=== PATIENT | male | born 1990 | race Caucasian/White ===

== ENCOUNTER 2019-03-12 10:57 | Inpatient (IN) ==
[2019-03-12 12:49] LABS: Basophils # (auto) 0.01 K/uL (0-0.2); Basophils % (auto) 0.2 %; Eosinophils # (auto) 0.01 K/uL (0-0.5); Eosinophils % (auto) 0.2 %; Hematocrit (blood only) 49.9 % (42-52); Hemoglobin 18.3 g/dL (14.0-18.0); Immature Granulocytes # (auto) 0.01 K/uL (0.00-0.02); Immature Granulocytes % (auto) 0.2 %; Lymphocytes # (auto) 1.58 K/uL (1.2-3.4); Lymphocytes % (auto) 34.4 %; Mean Corpuscular Hemoglobin 33.8 pg (25-34); Mean Corpuscular Hgb Conc 36.7 g/dL (32-36); Mean Corpuscular Volume 92.1 fL (80-100); Mean Platelet Volume 9.5 fL (7.4-10.4); Monocytes # (auto) 0.36 K/uL (0.11-0.59); Monocytes % (auto) 7.8 %; Neutrophils # (auto) 2.62 K/uL (1.4-6.5); Neutrophils % (auto) 57.2 %; Platelet Count 251 K/uL (130-400); RDW Coefficient of Variation 12.2 % (11.5-14.5); RDW Standard Deviation 41.1 fL (36.4-46.3); Red Blood Count 5.42 M/uL (4.7-6.1); White Blood Count 4.59 K/uL (4.8-10.8)
[2019-03-12 12:50] LABS: Appearance Urine Cloudy (Clear); Bacteria Urine Automated Negative (Negative); Bilirubin Urine Negative (Negative); Blood Urine Negative (Negative); Color Urine Dark Yellow; Epithelial Cell Urine Auto >30 /lpf (0-5); Glucose Urine UA Negative (Negative); Ketones Urine Trace (Negative); Leukocyte Esterase Urine Trace (Negative); Nitrite Urine Negative (Negative); Protein Urine 1+ (Negative); RBC Urine Automated 0-4 /hpf (0-4); Specific Gravity Urine 1.019 (1.000-1.030); Urobilinogen Urine Negative (Negative)
[2019-03-12 13:04] LABS: Albumin Level 4.6 gm/dl (3.4-5.0); BUN Creatinine Ratio 4.4 (10-20); Calcium 8.7 mg/dl (8.5-10.1); Creatinine Clr Calc Pharmacy 142.4 ml/min; Est GFR (African American) 133.9; Est GFR (Non-African American) 115.5; Potassium 3.1 mmol/L (3.5-5.1)
[2019-03-12 13:13] LABS: Amphetamines+Metham, Urine Neg (Neg); Barbiturates, Urine Neg (Neg); Benzodiazepine, Urine Neg (Neg); Cocaine, Urine Neg (Neg); MDMA (Ecstacy), Urine Neg (Neg); Methadone, Urine Neg (Neg); Opiate, Urine Neg (Neg); Phencyclidine, Urine Neg (Neg)
[2019-03-12 13:14] LABS: Albumin Globulin Ratio 1.2 (0.9-2); Bilirubin,Total 0.8 mg/dl (0.2-1); Globulin 3.9 gm/dl (2.5-4.0); Thyroid Stimulating Hormone 0.954 uIu/ml (0.300-4.500); Total Protein 8.5 gm/dl (6.4-8.2)
[2019-03-12 13:24] LABS: Acetaminophen < 2 ug/ml (10-30)
[2019-03-12 13:25] LABS: Salicylate < 1.7 mg/dl (2.8-20)
--- NOTE | 2019-03-12 19:22 | Emergency Department Note ---
Entered by Shawanda Rodrigues acting as a scribe for MoisesCalvin History of Present Illness General Chief complaint: Mental Health Evaluation Stated complaint: 302 Time Seen by Provider: 03/12/19 12:02 Source: patient History of Present Illness Onset (ago): day(s) (today) Location: head Pain Consistency: + other (episode) Quality: + other (mental health) Associated symptoms: + denies other symptoms (SI, HI, difficulty sleeping, loss of interest in activities, feeling guilty, change in energy, difficulty concentrating, changes in eating habits) and + other (stress at work) The patient is a 28 year old male who presents to the Emergency Room for a mental health evaluation. Per the psych case therapist, the patient is here on a 302. She states that the patient texted his boss that he might blow his head off. She states that the patient then quit his job so the patients boss was concerned and called 911. She reports that police found him in his living room sitting with his 2 shotguns and rifle. The patient states that he said about it in passing at work once before, but really drunk so may have sent a text. He notes that he does not remember. He states that all he knows is that he was sitting on the couch when there was a knock at the door. He reports that authorities then bought him here. The patient notes that he does have access to guns at his home. The patient states that he has had a lot of stress at work. The patient denies SI, HI, difficulty sleeping, loss of interest in activities, feeling guilty, change in energy, difficulty concentrating, changes in eating habits, using drugs, and ever being treated for depression or anxiety. 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 and A total of 10 systems reviewed and were otherwise negative Physical Exam Vital Signs Vital Signs - 24 hr 03/12/19 12:41 03/12/19 14:39 03/12/19 16:39 Pulse Rate [Finger] 116 H 118 H 110 H Pulse Rhythm [Finger] Regular Pulse Strength [Finger] Normal Respiratory Rate 20 20 16 Respiratory Effort / Characteristics Non-Labored Spontaneous Respiratory Depth Normal Respiratory Pattern Regular Blood Pressure [Left Arm] 153/99 H 163/104 H 157/97 H Blood Pressure Mean [Left Arm] 117 123 117 Blood Pressure Position [Left Arm] Sitting Pulse Oximetry 97 98 98 Oxygen Delivery Method Room Air Room Air Room Air 03/12/19 19:48 03/12/19 20:23 03/12/19 21:06 Pulse Rate [Finger] 99 H 88 Pulse Rhythm [Finger] Regular Regular Pulse Strength [Finger] Normal Normal Respiratory Rate 20 20 Respiratory Effort / Characteristics Non-Labored Spontaneous Non-Labored Spontaneous Respiratory Depth Normal Normal Respiratory Pattern Blood Pressure [Left Arm] 159/99 H 160/99 H 156/97 H Blood Pressure Mean [Left Arm] 119 119 116 Blood Pressure Position [Left Arm] Pulse Oximetry 100 99 Oxygen Delivery Method Room Air Room Air GENERAL: He is oriented to person, place, and time. He appears well-developed and well-nourished. He does not appear distressed. HENT: Exam performed. - Head: Normocephalic and atraumatic. - Right Ear: External ear normal. No mastoid tenderness. - Left Ear: External ear normal. No mastoid tenderness. - Mouth/Throat: The oropharynx is clear and moist. No trismus in the jaw. No dental abscesses or uvula swelling. No oropharyngeal exudate or tonsillar abscesses. EYES: Conjunctivae and EOM are normal. Pupils are equal, round, and reactive to light. Right eye exhibits no discharge. Left eye exhibits no discharge. No scleral icterus. NECK: Normal range of motion. Neck supple. No JVD present. No spinous process tenderness present. No carotid bruit present. No rigidity. No tracheal deviation and normal range of motion present. No Brudzinski's sign and no Kernig's sign n oted. CV: Normal rate, regular rhythm, normal heart sounds and intact distal pulses. There is no peripheral edema. Palpable radial pulses bue. PULM/CHEST: Effort normal and breath sounds normal. No respiratory distress. No stridor. He has no wheezes. He has no rales. - Chest Wall: He exhibits no tenderness. ABD: The abdomen is soft. Bowel sounds are normal. He has no distension. No mass is present. There is no tenderness. There is no rebound, no guarding, no Garcia's sign and no tenderness at McBurney's point. Rovsig negative. MUSC/SKEL: Normal range of motion. There is no peripheral edema, tenderness or deformity. LYMPH: No cervical adenopathy. NEURO: He is alert and oriented to person, place, and time. He has normal strength. No cranial nerve deficit or sensory deficit. Coordination and gait normal. GCS eye subscore is 4. GCS verbal subscore is 5. GCS motor subscore is 6. Cerebellar tests wnl. SKIN: Skin is warm and dry. He is not diaphoretic. PSYCH: He has a normal mood and affect. Behavior is normal. Judgment and thought content normal. Course 1251: Past medical records reviewed. The patient was evaluated in room A6. A complete history and physical exam was performed. 1804: Vital signs stable. Patient is medically clear. The psych case therapist recommends that after evaluation that the patient come in. 2030: The patient was signed out to Dr. Hartman at change of shift pending placement. Administered Medications Lorazepam (Ativan) 1 - 3 mg PO UD PRN; Protocol PRN Reason: EtoH Withdrawal AWSS 6-10+ Stop: 04/11/19 22:50 Last Admin: 03/13/19 11:44 Dose: 1 mg Documented by: [id number] Admin: 03/13/19 09:46 Dose: 1 mg Documented by: [id number] Discontinued Medications Sodium Chloride (Nss 1000ml) 1,000 mls @ 999 mls/hr IV .Q1H1M ONE Stop: 03/12/19 20:42 Last Infusion: 03/12/19 21:07 Dose: 0 mls/hr Documented by: [id number] Admin: 03/12/19 20:37 Dose: 999 mls/hr Documented by: [id number] Lorazepam (Ativan) 1 mg SL NOW STA Stop: 03/12/19 23:10 Last Admin: 03/12/19 23:12 Dose: 1 mg Documented by: [id number] Medical Decision Making Medical Records Attestation: I reviewed the patient's medical records. Home Medications Current Medication List: was personally reviewed by me Laboratory Data Attestation: I reviewed the patient's lab results. Result diagrams: 03/12/19 12:31 03/12/19 12:30 Lab Results 03/12/19 03/12/19 03/12/19 Range/Units 12:20 12:20 12:30 WBC (4.8-10.8) K/uL RBC (4.7-6.1) M/uL Hgb (14.0-18.0) g/dL Hct (42-52) % MCV (80-100) fL MCH (25-34) pg MCHC (32-36) g/dL RDW Std Deviation (36.4-46.3) fL RDW Coeff of Ney (11.5-14.5) % Plt Count (130-400) K/uL MPV (7.4-10.4) fL Immature Gran % (Auto) % Neut % (Auto) % Lymph % (Auto) % [place] % (Auto) % Eos % (Auto) % Baso % (Auto) % Immature Gran # (Auto) (0.00-0.02) K/uL Neut # (Auto) (1.4-6.5) K/uL Lymph # (Auto) (1.2-3.4) K/uL [place] # (Auto) (0.11-0.59) K/uL Eos # (Auto) (0-0.5) K/uL Baso # (Auto) (0-0.2) K/uL Sodium 140 (136-145) mmol/L Potassium 3.1 L (3.5-5.1) mmol/L Chloride 103 (98-107) mmol/L Carbon Dioxide 28 (21-32) mmol/L Anion Gap 9.0 (3-11) BUN 4 L (7-18) mg/dl Creatinine 0.89 (0.6-1.4) mg/dl Est Cr Clr Drug Dosing 142.4 ml/min Est GFR ( Amer) 133.9 Est GFR (Non-Af Amer) 115.5 BUN/Creatinine Ratio 4.4 L (10-20) Glucose 90 (70-99) mg/dl Calcium 8.7 (8.5-10.1) mg/dl Total Bilirubin 0.8 (0.2-1) mg/dl AST 74 H (15-37) U/L ALT 83 H (12-78) U/L Alkaline Phosphatase 70 (45-117) U/L Total Protein 8.5 H (6.4-8.2) gm/dl Albumin 4.6 (3.4-5.0) gm/dl Globulin 3.9 (2.5-4.0) gm/dl Albumin/Globulin Ratio 1.2 (0.9-2) TSH 0.954 (0.300-4.500) uIu/ml Urine Color Dark Yellow Urine Appearance Cloudy A (Clear) Urine pH 6.0 (4.5-7.5) Ur Specific [place] 1.019 (1.000-1.030) Urine Protein 1+ H (Negative) Urine Glucose (UA) Negative (Negative) Urine Ketones Trace H (Negative) Urine Blood Negative (Negative) Urine Nitrite Negative (Negative) Urine Bilirubin Negative (Negative) Urine Urobilinogen Negative (Negative) Ur Leukocyte Esterase Trace H (Negative) Urine WBC (Auto) 1-5 (0-5) /hpf Urine RBC (Auto) 0-4 (0-4) /hpf U Hyaline Cast (Auto) 10-30 H (0-5) /lpf U Epithel Cells (Auto) >30 H (0-5) /lpf Urine Bacteria (Auto) Negative (Negative) Salicylates (2.8-20) mg/dl Urine Opiates Screen Neg (Neg) Ur Methadone, Qual Neg (Neg) Acetaminophen (10-30) ug/ml Urine Barbiturates Neg (Neg) Ur Phencyclidine (PCP) Neg (Neg) U Amphetamin/Meth Scrn Neg (Neg) MDMA (Ecstasy) Screen Neg (Neg) U Benzodiazepines Scrn Neg (Neg) Ur Cocaine Metabolite Neg (Neg) U Marijuana (THC) Screen Neg (Neg) Ethyl Alcohol mg/dL (0-3) mg/dl 03/12/19 03/12/19 03/12/19 Range/Units 12:31 12:31 12:31 WBC 4.59 L (4.8-10.8) K/uL RBC 5.42 (4.7-6.1) M/uL Hgb 18.3 H (14.0-18.0) g/dL Hct 49.9 (42-52) % MCV 92.1 (80-100) fL MCH 33.8 (25-34) pg MCHC 36.7 H (32-36) g/dL RDW Std Deviation 41.1 (36.4-46.3) fL RDW Coeff of Ney 12.2 (11.5-14.5) % Plt Count 251 (130-400) K/uL MPV 9.5 (7.4-10.4) fL Immature Gran % (Auto) 0.2 % Neut % (Auto) 57.2 % Lymph % (Auto) 34.4 % [place] % (Auto) 7.8 % Eos % (Auto) 0.2 % Baso % (Auto) 0.2 % Immature Gran # (Auto) 0.01 (0.00-0.02) K/uL Neut # (Auto) 2.62 (1.4-6.5) K/uL Lymph # (Auto) 1.58 (1.2-3.4) K/uL [place] # (Auto) 0.36 (0.11-0.59) K/uL Eos # (Auto) 0.01 (0-0.5) K/uL Baso # (Auto) 0.01 (0-0.2) K/uL Sodium (136-145) mmol/L Potassium (3.5-5.1) mmol/L Chloride (98-107) mmol/L Carbon Dioxide (21-32) mmol/L Anion Gap (3-11) BUN (7-18) mg/dl Creatinine (0.6-1.4) mg/dl Est Cr Clr Drug Dosing ml/min Est GFR ( Amer) Est GFR (Non-Af Amer) BUN/Creatinine Ratio (10-20) Glucose (70-99) mg/dl Calcium (8.5-10.1) mg/dl Total Bilirubin (0.2-1) mg/dl AST (15-37) U/L ALT (12-78) U/L Alkaline Phosphatase (45-117) U/L Total Protein (6.4-8.2) gm/dl Albumin (3.4-5.0) gm/dl Globulin (2.5-4.0) gm/dl Albumin/Globulin Ratio (0.9-2) TSH (0.300-4.500) uIu/ml Urine Color Urine Appearance (Clear) Urine pH (4.5-7.5) Ur Specific [place] (1.000-1.030) Urine Protein (Negative) Urine Glucose (UA) (Negative) Urine Ketones (Negative) Urine Blood (Negative) Urine Nitrite (Negative) Urine Bilirubin (Negative) Urine Urobilinogen (Negative) Ur Leukocyte Esterase (Negative) Urine WBC (Auto) (0-5) /hpf Urine RBC (Auto) (0-4) /hpf U Hyaline Cast (Auto) (0-5) /lpf U Epithel Cells (Auto) (0-5) /lpf Urine Bacteria (Auto) (Negative) Salicylates < 1.7 L (2.8-20) mg/dl Urine Opiates Screen (Neg) Ur Methadone, Qual (Neg) Acetaminophen < 2 L (10-30) ug/ml Urine Barbiturates (Neg) Ur Phencyclidine (PCP) (Neg) U Amphetamin/Meth Scrn (Neg) MDMA (Ecstasy) Screen (Neg) U Benzodiazepines Scrn (Neg) Ur Cocaine Metabolite (Neg) U Marijuana (THC) Screen (Neg) Ethyl Alcohol mg/dL 173.0 H (0-3) mg/dl ECG Data Attestation: I personally reviewed and interpreted this ECG as follows: Indication: tachycardia (arrhythmia) Rate (beats per minute): 109 Rhythm: sinus rhythm Findings: + other (OK, QRS, and QT-c intervals are within normal limits); no ST depression and no ST elevation Blood Pressure Blood Pressure Findings: Elevated blood pressure Blood Pressure Disposition: elevated BP felt to be situational MDM Narrative 1251: Past medical records reviewed. The patient was evaluated in room A6. A complete history and physical exam was performed. 1804: Vital signs stable. Patient is medically clear. The psych case therapist recommends that after evaluation that the patient come in. 2030: The patient was signed out to Dr. Hartman at change of shift pending placement. Impression & Plan Suicide ideation Discharge Plan Visit Data *Final* Discharge Date/Time: 03/12/19 23:30 Chief Complaint: Mental Health Evaluation Stated Complaint: 302 ED Provider: Cristopher Hartman Discharge Problem: Suicide ideation Patient Disposition: Admitted As Inpatient Discharge Instructions Interventions: ED Discharge Assessment Last Done: 03/12/19 23:30 The scribe's documentation has been prepared under my direction and personally reviewed by me in its entirety. I confirm that the note above accurately reflects all work, treatment, procedures, and medical decision making performed by me.
[2019-03-12] MEDS: SODIUM CHLORIDE 0.9% 1000ML 1,000 ML IV ONE ×2 (19:54→20:37)
--- NOTE | 2019-03-12 21:48 | Emergency Department Note ---
ED Visit Note Patient signed out to me by Dr. De Leon awaiting placement in [facility] for inpatient psychiatric care on a voluntary admission. Patient has been medically cleared. Patient's heart rate improved with some fluids here and was accepted to [facility] for further care. Still anxious. No other acute issues in the emergency department. .
[2019-03-12] MEDS ORDERED: LORazepam 1 MG TAB SL STA (23:09)
[2019-03-12] MEDS ORDERED: BISMUTH SUBSALICYLATE PER ML OMNICELL CHARGE PO PRN (23:55)
[2019-03-12] MEDS ORDERED: SODIUM CHLORIDE 0.65% NA SOLN 45 ML (OCEAN) PRN (23:55)
[2019-03-12] MEDS ORDERED: ACETAMINOPHEN 325 MG TAB PO PRN (23:55)
[2019-03-12] MEDS ORDERED: ALUMINUM/MAGNESIUM SUSP 30 ML UDC PO PRN (23:55)
[2019-03-12] MEDS ORDERED: MAGNESIUM HYDROXIDE SUSP 30 ML UDC PO PRN (23:55)
--- NOTE | 2019-03-13 08:32 | History & Physical ---
Date of Service March 13, 2019 Impression / Recommendations Impression 28-year-old single male who lives alone in [place], denies any psychiatric history, and presented with police after sending suicidal text messages to his boss. He was brought in on a 302 warrant, but agreed to voluntary admission once sober. He denies symptoms sufficient to meet criteria for major depressive disorder, but endorses recent mood symptoms due to dissatisfaction at work, which were intensified by binge drinking yesterday morning during a text exchange with his boss. He says he does not recall sending suicidal texts, and was surprised when police came to his door. He has multiple firearms at home which he keeps out in the open and says this is not unusual. Collateral information from his mother and/or girlfriend would be beneficial, as well as ongoing discussion about coping skills and stressors. For now inpatient treatment is medically necessary due to the severity of presenting symptoms and risk for suicide if discharged prematurely. (1) Adjustment disorder with depressed mood: 03/13 -get collateral information from mother or girlfriend as to recent mood symptoms, suicidal statements, and other concerns. Scheduled family meetin g if appropriate. -Every 15 minute checks for safety. Encourage the patient to attend and participate in groups and therapy, work on healthy coping skills and a discharge safety plan. -Patient owns multiple guns, which he uses recreationally, and denies any safety concerns about having them in the home. Provide education regarding safe storage of guns and recommendations that a plan be in place for someone to remove and secure his guns if and when there are safety concerns. He does not feel this is necessary currently. -Education provided regarding risks of ongoing alcohol use, including worsening mood and anxiety, health issues, disinhibition/increased impulsivity, and increased risk of acting on suicidal thoughts. Patient states that yesterday's binge drinking was out of character, and that he typically drinks 1-2 drinks 1-3 nights a week. Present on Admission?: Yes (2) Alcohol intoxication: 03/13 -patient with hypertension, tachycardia, tremor, and reflux. Continue AWSS protocol with as needed lorazepam. He has received 3 mg in 12 hours since admission. Present on Admission?: Yes Risk Factors Assessment Male: Yes : Yes Do You Have Access To A Gun?: Yes (multiple guns - 2 pistols and several rifles) Health Problems: No Mental Health Diagnoses: No Substance Use Disorders: No Previous Attempt: No Family History of Suicide: No Previous Psychiatric Hospitalization: No Hopelessness: No Smoker: No Protective Factors Assessment Adventist Beliefs: No : No Responsible for Young Children: No Employed: No (Quit job today at [employer]) Stable Relationships: Yes Supportive Family: Yes Good Rapport with Provider: No Psychiatric History Identifying Data SHIRA DELACRUZ is a 28-year-old M who currently lives alone in [place], denies any psychiatric history, and was admitted on 03/12/19 22:52 on a 201 voluntary commitment for suicidal ideation with threats to shoot himself. Chief Complaint "Summarizing, it was a build up of anxiety and stuff from work, that led to a snap". History of Present Illness Patient presented to the ER yesterday (03/12/19) with police on a 302 warrant after he missed work for several days, then sent his boss a text stating he might "blow his head off." His boss contacted police who found him sitting in his living room with 3 guns. He was intoxicated on presentation with a BAL of 173. He reported significant work stress, and said he did not recall making suicidal statements to his boss, but that he often has SI when drinking. He endorsed recent increase in alcohol intake as a way to deal with stress. He had been living in [place] until a year ago when he moved here to live with his mother, and had been working at [employer] but didn't like the job or get along with his boss. He reported drinking 2 nights a week, and was started in AWSS due to HTN and tremor in ER. Today on my assessment, he reports he doesn't like his boss, as his car and he hadn't been to work in a while, and his boss was not very understanding. His boss also made rude comments about his girlfriend, "he's very intense and it's difficult to be around him." He says he texted his boss yesterday morning telling him he wasn't coming in, and his boss "fired back with a bunch of stuff." He got upset and "started drinking, either vodka or whiskey," and they continued to communicate by text over the next couple of hours, but he doesn't recall the content of this conversation as he was intoxicated. He admits he might have sent suicidal statements, and says the next thing he remembers, the police were at his door. He admits that he had several guns out in the living room when police arrived, and states he typically leaves his guns out, one on the table, one leaning against the wall, and one on a shelf, and is not concerned about safety issues. He denies that he's had suicidal thoughts when sober, stating it's "irrational" and he doesn't think he would ever hurt himself, "I don't want to hurt myself." He denies depressive symptoms, describes mood as "really good" (other than yesterday, which was "a really bad day"), just started a new relationship that is "going really good," and denies problems with sleep, appetite, weight loss, concentration, and guilt. He denies anxiety, psychosis, and lobito. He states his job was "the only thing not going good in my life." He had been thinking about leaving his job, but "felt an obligation" to some of the people he worked with. He had actually set up an interview at another local business, which he missed yesterday. He has lots of hobbies and enjoys sewing, woodworking, working on motorcycles and cars, and volunteers at a [employer] in [place]. Describes relationship with mother as "distant, but we love each other." He reports embarrassment about the events that led to hosp italization, states he is willing to talk through his stressors, and thinks that it could help to be here. Past Psychiatric History Previous Psych History: Denies. Current Psychiatric Diagnosis: Denies Outpatient Services: Denies Previous Psych Admissions: Denies Do You Have Access To A Gun?: Yes (multiple guns - 2 pistols and several rifles) History of Previous Suicide Attempt: No Describe Attempts in the Past: Patient denies past attempts but admits to past SI when drinking Past Medication Trials: Denies Allergies Allergy/AdvReac Type Severity Reaction Status Date / Time No Known Allergies Allergy Unverified 03/12/19 14:40 Home Medications Home Medications Medication Instructions Recorded Confirmed Type No Known Home Medications 03/12/19 03/12/19 History Family History Family History of: None Alcohol History Hx of Alcohol Use Over the Past 12 Months: Yes (increased past 3 days) AUDIT Total Score: 6 Patient reports drinking 1-3 nights a week, typically 1-2 drinks. In the past has been a heavier drinker, "the college amount, when I went to college." Denies h/o legal problems, relationship issues d/t drinking. Reports h/o alcohol withdrawal on one occasion, with tremor. Smoking Use Have You Smoked or Used Tobacco Products in the Last 30 Days: Yes tobacco type: cigarettes Smoking Status: Current some day smoker Smoking packs per day: 0.05 Substance History Hx of Prescription Med Misuse Over the Past 12 Months: No Hx of Over the Counter Med Misuse Over the Past 12 Months: No Hx of Inhalent Misuse Over the Past 12 Months: No Hx of Organic Substance Use Over the Past 12 Months: No Hx of Illegal Substances/Street Drug Use Over Past 12 Months: No Problems as a Result of Past Substance Use: Other (suicidal thoughts when drinking) Personal History Living Arrangements: Home Living Arrangements Comments: lives alone in 1 bedroom apartment in [place]. Mother lives in [place] with her 2nd (patient's step father). Childhood: Grew up in [place], [place]. Parents age 12, and he stayed in [place] with father initially, but for a period of 5 years moved to [place] with mother. 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 Lived there until age 27, when returned to [facility] to be close to mother and get away from city life/higher cost of living. Has 2 step sisters and 3 stepsisters who live in [place]. Employment Status: Cosmetic Maker Employed ([employer]) Marital Status: Single Beliefs That Will Affect Care: None Patient History Medical History No known health problems Family History Other No significant family history Social History Preferred Language: Amharic Communication Ability: Effective Oral Surgery Physician Required: No Beliefs That Will Affect Care: None marital status: Single Current Living Situation: Alone current occupational status: employed Feels Safe at Home: Yes Smoking Status: Current some day smoker Tobacco Type: cigarettes ; Hx Alcohol Use: Yes Hx Substance Use: No Review of Systems Review of Systems: All systems reviewed & are unremarkable except as noted in HPI & below reflux, tremor, headache. Denies history of manic, psychotic, and anxiety symptoms. Physical Exam Psychiatric: Orientation: alert and cooperative Apperance: appropriately dressed, appropriately groomed and appeared stated age Eye Contact: + fair eye contact Motor Behavior: steady gait and station Mild tremor of bilateral upper extremities Speech: normal rate/rhythm/volume of speech Affect: + anxious affect and + blunted affect "Embarrassed." Thought Process: goal directed thought process Thought Content: reality based without delusions Suicidal Thoughts: denies suicidal thoughts Homicidal Thoughts: denies homicidal thoughts Hallucinations: no auditory hallucinations Cognition: recent memory grossly intact (Other than events of yesterday morning while intoxicated), attention grossly intact and language grossly intact Insight: + fair insight Judgement: + fair judgement (Although judgment was impaired yesterday on presentation) Vital Signs (Past 24 Hours): Last Vital Signs Temp 36.8 C 03/13/19 06:46 Pulse 97 H 03/13/19 06:47 Resp 18 03/13/19 06:46 BP 141/97 H 03/13/19 06:47 Pulse Ox 97 03/12/19 23:02 Exam Statement: A physical exam was performed in the ER prior to admission to the unit by Dr. Cristopher Hartman. I accept that physical as correct/medical clearance for the inpatient physical exam. Results & Data Laboratory Results Laboratory Results - last 24 hr 03/12/19 03/12/19 03/12/19 12:20 12:20 12:30 WBC RBC Hgb Hct MCV MCH MCHC RDW Std Deviation RDW Coeff of Ney Plt Count MPV Immature Gran % (Auto) Neut % (Auto) Lymph % (Auto) [place] % (Auto) Eos % (Auto) Baso % (Auto) Immature Gran # (Auto) Neut # (Auto) Lymph # (Auto) [place] # (Auto) Eos # (Auto) Baso # (Auto) Sodium 140 Potassium 3.1 L Chloride 103 Carbon Dioxide 28 Anion Gap 9.0 BUN 4 L Creatinine 0.89 Est Cr Clr Drug Dosing 142.4 Est GFR ( Amer) 133.9 Est GFR (Non-Af Amer) 115.5 BUN/Creatinine Ratio 4.4 L Glucose 90 Calcium 8.7 Total Bilirubin 0.8 AST 74 H ALT 83 H Alkaline Phosphatase 70 Total Protein 8.5 H Albumin 4.6 Globulin 3.9 Albumin/Globulin Ratio 1.2 TSH 0.954 Urine Color Dark Yellow Urine Appearance Cloudy A Urine pH 6.0 Ur Specific [place] 1.019 Urine Protein 1+ H Urine Glucose (UA) Negative Urine Ketones Trace H Urine Blood Negative Urine Nitrite Negative Urine Bilirubin Negative Urine Urobilinogen Negative Ur Leukocyte Esterase Trace H Urine WBC (Auto) 1-5 Urine RBC (Auto) 0-4 U Hyaline Cast (Auto) 10-30 H U Epithel Cells (Auto) >30 H Urine Bacteria (Auto) Negative Salicylates Urine Opiates Screen Neg Ur Methadone, Qual Neg Acetaminophen Urine Barbiturates Neg Ur Phencyclidine (PCP) Neg U Amphetamin/Meth Scrn Neg MDMA (Ecstasy) Screen Neg U Benzodiazepines Scrn Neg Ur Cocaine Metabolite Neg U Marijuana (THC) Screen Neg Ethyl Alcohol mg/dL 03/12/19 03/12/19 03/12/19 12:31 12:31 12:31 WBC 4.59 L RBC 5.42 Hgb 18.3 H Hct 49.9 MCV 92.1 MCH 33.8 MCHC 36.7 H RDW Std Deviation 41.1 RDW Coeff of Ney 12.2 Plt Count 251 MPV 9.5 Immature Gran % (Auto) 0.2 Neut % (Auto) 57.2 Lymph % (Auto) 34.4 [place] % (Auto) 7.8 Eos % (Auto) 0.2 Baso % (Auto) 0.2 Immature Gran # (Auto) 0.01 Neut # (Auto) 2.62 Lymph # (Auto) 1.58 [place] # (Auto) 0.36 Eos # (Auto) 0.01 Baso # (Auto) 0.01 Sodium Potassium Chloride Carbon Dioxide Anion Gap BUN Creatinine Est Cr Clr Drug Dosing Est GFR ( Amer) Est GFR (Non-Af Amer) BUN/Creatinine Ratio Glucose Calcium Total Bilirubin AST ALT Alkaline Phosphatase Total Protein Albumin Globulin Albumin/Globulin Ratio TSH Urine Color Urine Appearance Urine pH Ur Specific [place] Urine Protein Urine Glucose (UA) Urine Ketones Urine Blood Urine Nitrite Urine Bilirubin Urine Urobilinogen Ur Leukocyte Esterase Urine WBC (Auto) Urine RBC (Auto) U Hyaline Cast (Auto) U Epithel Cells (Auto) Urine Bacteria (Auto) Salicylates < 1.7 L Urine Opiates Screen Ur Methadone, Qual Acetaminophen < 2 L Urine Barbiturates Ur Phencyclidine (PCP) U Amphetamin/Meth Scrn MDMA (Ecstasy) Screen U Benzodiazepines Scrn Ur Cocaine Metabolite U Marijuana (THC) Screen Ethyl Alcohol mg/dL 173.0 H Current Inpatient Medications Current Inpatient Medications: Current Inpatient Medications Acetaminophen (Tylenol) 650 mg PO Q4H PRN PRN Reason: Headache or Minor Fever Stop: 04/11/19 23:54 Al Hydrox/Mg Hydrox/Simethicone (Maalox) 30 ml PO Q4H PRN PRN Reason: GI Upset Stop: 04/11/19 23:54 Bismuth Subsalicylate (Kaopectate) 15 ml PO PRN PRN PRN Reason: Loose Stool Stop: 04/11/19 23:54 Hydroxyzine HCl (Vistaril) 50 mg PO HSZ PRN PRN Reason: Insomnia Stop: 04/11/19 23:54 Hydroxyzine HCl (Vistaril) 25 mg PO Q4H PRN PRN Reason: Anxiety Stop: 04/11/19 23:54 Lorazepam (Ativan) 1 - 3 mg PO UD PRN; Protocol PRN Reason: EtoH Withdrawal AWSS 6-10+ Stop: 04/11/19 22:50 Magnesium Hydroxide (Milk Of Magnesia) 30 ml PO DAILY PRN PRN Reason: Constipation Stop: 04/11/19 23:54 Sodium Chloride ([place] Nasal) 1 - 2 sprays NA PRN PRN PRN Reason: Nasal Dryness/Congestion Stop: 04/11/19 23:54 CPT Code CPT Code Initial Hospital Care: 30425
[2019-03-13] MEDS: LORazepam 1 MG TAB PO PRN ×3 (09:46→14:37)
[2019-03-13] MEDS ORDERED: GABAPENTIN 1200MG ALCOHOL WITHDRAWAL LOAD PO STA (15:48)
[2019-03-13] MEDS ORDERED: GABAPENTIN 600 MG TAB PO ONE (16:00)
[2019-03-13] MEDS ORDERED: cloNIDine HCl 0.1 MG TAB PO ONE (16:15)
[2019-03-13] MEDS: GABAPENTIN 600 MG TAB PO SCH (21:15)
[2019-03-14] MEDS: GABAPENTIN 600 MG TAB PO SCH ×3 (04:03→20:16)
--- NOTE | 2019-03-14 07:07 | Psychiatric Progress Note ---
Date of Service March 14, 2019 Impression / Recommendations Impression 28-year-old single male who lives alone in [place], denies any psychiatric history, and presented with police after sending suicidal text messages to his boss. He was brought in on a 302 warrant, but agreed to voluntary admission once sober. He denies symptoms sufficient to meet criteria for major depressive disorder, but endorses recent mood symptoms due to dissatisfaction at work, complicated by alcohol abuse. Although he reported drinking up to 3 days a week, he had withdrawal with HTN and tachycardia and gabapentin taper had to be added to lorazepam prn AWSS. He says he does not recall sending suicidal texts, and was surprised when police came to his door, but was found with 3 different guns. He has multiple firearms at home which he keeps out in the open and says this is not unusual. Collateral information from his mother and/or girlfriend would be beneficial, as well as ongoing discussion about coping skills and stressors. Unfortunately he is declining a family meeting, and although he allowed staff to talk with his girlfriend, it is a new relationship and does not know very much about his history. For now inpatient treatment is medically necessary due to the severity of presenting symptoms and risk for suicide if discharged prematurely. (1) Adjustment disorder with depressed mood: 03/13 -get collateral information from mother or girlfriend as to recent mood symptoms, suicidal statements, and other concerns. Scheduled family meeting if appropriate. -Every 15 minute checks for safety. Encourage the patient to attend and part icipate in groups and therapy, work on healthy coping skills and a discharge safety plan. -Patient owns multiple guns, which he uses recreationally, and denies any safety concerns about having them in the home. Provide education regarding safe storage of guns and recommendations that a plan be in place for someone to remove and secure his guns if and when there are safety concerns. He does not f eel this is necessary currently. -Education provided regarding risks of ongoing alcohol use, including worsening mood and anxiety, health issues, disinhibition/increased impulsivity, and increased risk of acting on suicidal thoughts. Patient states that yesterday's binge drinking was out of character, and that he typically drinks 1-2 drinks 1-3 nights a week. 03/14 -mood continues to improve. Reports good support from girlfriend, but declining a formal family meeting. -Patient continues to decline recommendations to secure firearms. -Although he is interested in outpatient therapy, he is declining a referral due to lack of insurance and financial barriers. Encouraged him to apply for medical assistance, and will provide a list of resources in the community in case he changes his mind. (2) Alcohol withdrawal: 03/13 -patient with hypertension, tachycardia, tremor, and reflux. Continue AWSS protocol with as needed lorazepam. He has received 3 mg in 12 hours since admission. 03/14 -gabapentin taper started yesterday due to severity of withdrawal symptoms, tachycardia, and hypertension. Vital signs have stabilized, and he has not triggered AWSS in most 24 hours. -Reviewed patient's lab work with him, including his elevated LFTs, and that this is likely due to his alcohol intake. Reviewed the risks of ongoing alcohol use, including organ damage, effects on mood, risk of suicide, other dangerous behaviors, legal problems, etc. Reviewed recommendations for substance abuse treatment and abstinence. Brief intervention was offered and accepted Intervention was greater than 5 min in length. Brief interventions include: 1. Assess Readiness to Quit, 2. Advise: Help Patient to Reduce or Abstain from Alcohol, 3. Agree: Set Specific, Feasible Goals, 4. Assist: Anticipate barriers, Problem-Solving Solutions. Social work to 5. Arrange: Referrals to appropriate treatment. Summary of intervention: The patient is in contemplation stage with regards to transtheoretical model of change. The patient is advised to decrease alcohol consumption due to depressant effects and risk of interactions with prescription medications. The patient agreed to abstain from alcohol, and will be provided with recovery materials to continue to education self on how to cope with their condition without drinking. Present on Admission?: Yes Risk Factors Assessment Male: Yes : Yes Do You Have Access To A Gun?: Yes (multiple guns - 2 pistols and several rifles) Health Problems: No Mental Health Diagnoses: No Substance Use Disorders: No Previous Attempt: No Family History of Suicide: No Previous Psychiatric Hospitalization: No Hopelessness: No Smoker: No Protective Factors Assessment Baptism Beliefs: No : No Responsible for Young Children: No Employed: No (Quit job today at [employer]) Stable Relationships: Yes Supportive Family: Yes Good Rapport with Provider: No Interval History Identifying Information SHIRA DELACRUZ is a 28-year-old M who currently lives alone in [place], denies any psychiatric history, and was admitted on 03/12/19 22:52 on a 201 voluntary commitment for suicidal ideation with threats to shoot himself. Chief Complaint "Pretty good". Review of Systems Sleep Information Total Hours of Sleep: 8 Sleep Comments: awakened at 2340-AWSS of 0, toilet trip, awakened at 0400- medicated with second dose of neurontin and AWSS of 4, awakened for AM v/s with AWSS of 0 Meal Information Percent Meal Consumed - Breakfast: 100 Percent Meal Consumed - Lunch: 100 Percent Meal Consumed - Dinner: 100 Subjective Subjective Patient was seen & assessed and interval progress reviewed with nursing and social work. Staff report he continues to score on AWSS and received 4mg total of lorazepam yesterday. Due to increasingly elevated BP and continued AWSS scores, he was started on gabapentin taper and received a dose of clonidine. He declined a family meeting but allowed staff to talk to his girlfriend, who reported he drinks but was unsure how much. He has been quiet and spending spare time in his room, but did go to group. On my assessment, he reports mood is "pretty good, better" today, and has been going to groups which have been helpful. He has been talking about his stressors and says he enjoys "just talking." He reports good sleep and good appetite. He says he asked 3 different friends if they would come in for a meeting, and says they all told him "it's kind of my deal, and they don't want to get involved. It's kind of my job to sort out my problems. This was such a minor thing that turned into such a big issue." His girlfriend "surprise visited me yesterday" and brought him some items. He says he "doesn't really think I need that in my life anymore," when asked about alcohol. He discussed this with his girlfriend who agreed, and he plans "not to drink anymore, makes people ugly and evil, it's just not healthy." He does not think he needs help to stop. His girlfriend is going to come live with him, as she's been staying in a travel trailer on her friend's property while looking for a place. She doesn't drink and he thinks having her there will help him stay sober. He has also been making phone calls and thinks he has new job lined up. He is interested in counseling but says he can't afford it. He reports tremor which he says he has at baseline, and denies nausea, vomiting, sweating, and cravings to drink. He asked to review his admission labs, which was done. Reviewed LFTs and low K. Physical Exam Vital Signs (Past 24 Hours) Last Vital Signs Temp 36.6 C 03/14/19 06:36 Pulse 90 03/14/19 06:36 Resp 18 03/14/19 06:36 BP 130/89 03/14/19 06:36 Pulse Ox 97 03/12/19 23:02 Results & Data Current Inpatient Medications Current Inpatient Medications: Current Inpatient Medications Acetaminophen (Tylenol) 650 mg PO Q4H PRN PRN Reason: Headache or Minor Fever Stop: 04/11/19 23:54 Al Hydrox/Mg Hydrox/Simethicone (Maalox) 30 ml PO Q4H PRN PRN Reason: GI Upset Stop: 04/11/19 23:54 Bismuth Subsalicylate (Kaopectate) 15 ml PO PRN PRN PRN Reason: Loose Stool Stop: 04/11/19 23:54 Gabapentin (Neurontin) 600 mg PO Q12H CONNOR Stop: 03/16/19 04:01 Gabapentin (Neurontin) 600 mg PO Q24H CONNOR Stop: 03/17/19 06:01 Gabapentin (Neurontin) 600 mg PO Q8H CONNOR Stop: 03/15/19 04:01 Hydroxyzine HCl (Vistaril) 50 mg PO HSZ PRN PRN Reason: Insomnia Stop: 04/11/19 23:54 Hydroxyzine HCl (Vistaril) 25 mg PO Q4H PRN PRN Reason: Anxiety Stop: 04/11/19 23:54 Lorazepam (Ativan) 1 - 3 mg PO UD PRN; Protocol PRN Reason: EtoH Withdrawal AWSS 6-10+ Stop: 04/11/19 22:50 Last Admin: 03/13/19 14:37 Dose: 2 mg Documented by: Magnesium Hydroxide (Milk Of Magnesia) 30 ml PO DAILY PRN PRN Reason: Constipation Stop: 04/11/19 23:54 Sodium Chloride ([place] Nasal) 1 - 2 sprays NA PRN PRN PRN Reason: Nasal Dryness/Congestion Stop: 04/11/19 23:54 Mental Health & Subst Abuse Tx Therapist Name of Therapist: None Area Forester Name of Area Forester: None Post Discharge Appointments Primary Care Physician Name Of Family Doctor: None CPT Code CPT Code 41376
[2019-03-14] MEDS: LORazepam 1 MG TAB PO PRN ×3 (10:48→18:15)
[2019-03-14] MEDS ORDERED: cloNIDine HCl 0.1 MG TAB PO ONE (13:15)
[2019-03-15] MEDS: GABAPENTIN 600 MG TAB PO SCH ×2 (03:57→15:59)
--- NOTE | 2019-03-15 08:53 | Psychiatric Progress Note ---
Date of Service March 15, 2019 Impression / Recommendations Impression 28-year-old single male who lives alone in [place], denies any psychiatric history, and presented with police after sending suicidal text messages to his boss. He was brought in on a 302 warrant, but agreed to voluntary admission once sober. He denies symptoms sufficient to meet criteria for major depressive disorder, but endorses recent mood symptoms due to dissatisfaction at work, complicated by alcohol abuse. Although he reported drinking up to 3 days a week, he had withdrawal with HTN and tachycardia and gabapentin taper had to be added to lorazepam prn AWSS. He says he does not recall sending suicidal texts, and was surprised when police came to his door, but was found with 3 different guns. He has multiple firearms at home which he keeps out in the open and says this is not unusual. Pt continues to report that this is an "isolated situation", although his presenting factors suggest he may be minimizing aspects of his history. Pt continues to decline a family meeting, despite providing names of several supports (family, girlfriend). He today that he acquired a gun safe, and was able to participate in safety planning - with discussion of when it may be appropriate to give girlfriend the encarnacion to prevent future impulsive decisions/reactions. Pt discusses insight regarding his frequent "impulsive decisions", such as impulsively drinking, sending the text message, and recently purchasing a motorcycle. Given concern for patient minimizing presenting factors, admission of impulsive reactions, unwillingness to involve supports in discharge planning, and no established aftercare - a continued inpatient psychiatric admission is recommended. These factors place the patient at higher risk of harm to self on discharge. Referral for medical treatment at [facility] is being explored, and patient continues to decline outpatient D&A treatment. He states he has applied for medical assistance to assist with any future outpatient treatment options. (1) Adjustment disorder with depressed mood: 03/13 -get collateral information from mother or girlfriend as to recent mood symptoms, suicidal statements, and other concerns. Scheduled family meeting if appropriate. -Every 15 minute checks for safety. Encourage the patient to attend and participate in groups and therapy, work on healthy coping skills and a discharge safety plan. -Patient owns multiple guns, which he uses recreationally, and denies any safety concerns about having them in the home. Provide education regarding safe storage of guns and recommendations that a plan be in place for someone to remove and secure his guns if and when there are safety concerns. He does not feel this is necessary currently. -Education provided regarding risks of ongoing alcohol use, including worsening mood and anxiety, health issues, disinhibition/increased impulsivity, and increased risk of acting on suicidal thoughts. Patient states that yesterday's binge drinking was out of character, and that he typically drinks 1-2 drinks 1-3 nights a week. 03/14 -mood continues to improve. Reports good support from girlfriend, but declining a formal family meeting. -Patient continues to decline recommendations to secure firearms. -Although he is interested in outpatient therapy, he is declining a referral due to lack of insurance and financial barriers. Encouraged him to apply for medical assistance, and will provide a list of resources in the community in case he changes his mind. 03/15 - Pt reports ongoing improvement in mood, denies SI - concern for ongoing minimization of presenting symptoms - Given limited willingness to participate in recommended outpatient treatment, patient would benefit from ongoing therapeutic intervention and assistance in development of healthy and effective coping strategies - Referral is also in progress for [facility] to establish medical care, and medical assistance application has been encouraged to assist with any future treatment needs (2) Alcohol withdrawal: 03/13 -patient with hypertension, tachycardia, tremor, and reflux. Continue AWSS protocol with as needed lorazepam. He has received 3 mg in 12 hours since admission. 03/14 -gabapentin taper started yesterday due to severity of withdrawal symptoms, tachycardia, and hypertension. Vital signs have stabilized, and he has not triggered AWSS in most 24 hours. -Reviewed patient's lab work with him, including his elevated LFTs, and that this is likely due to his alcohol intake. Reviewed the risks of ongoing alcohol use, including organ damage, effects on mood, risk of suicide, other dangerous behaviors, legal problems, etc. Reviewed recommendations for substance abuse treatment and abstinence. Brief intervention was offered and accepted Intervention was greater than 5 min in length. Brief interventions include: 1. Assess Readiness to Quit, 2. Advise: Help Patient to Reduce or Abstain from Alcohol, 3. Agree: Set Specific, Feasible Goals, 4. Assist: Anticipate barriers, Problem-Solving Solutions. Social work to 5. Arrange: Referrals to appropriate treatment. Summary of intervention: The patient is in contemplation stage with regards to transtheoretical model of change. The patient is advised to decrease alcohol consumption due to depressant effects and risk of interactions with prescription medications. The patient agreed to abstain from alcohol, and will be provided with recovery materials to continue to education self on how to cope with their condition without drinking. 03/15 - Pt scored a 6 on two AWSS assessments last evening - this morning scoring a 2. Will continue AWSS protocol and ongoing gabapentin taper as above - Pt continues to decline recommended D&A outpatient treatment - Pt reports conversations with girlfriend in which they determined plan to keep the apartment "alcohol free" Risk Factors Assessment Male: Yes : Yes Do You Have Access To A Gun?: Yes (multiple guns - 2 pistols and several rifles) Health Problems: No Mental Health Diagnoses: No Substance Use Disorders: No Previous Attempt: No Family History of Suicide: No Previous Psychiatric Hospitalization: No Hopelessness: No Smoker: No Protective Factors Assessment Judaism Beliefs: No : No Responsible for Young Children: No Employed: No (Quit job today at [employer]) Stable Relationships: Yes Supportive Family: Yes Good Rapport with Provider: No Interval History Identifying Information SHIRA DELACRUZ is a 28-year-old M who currently lives alone in [place], denies any psychiatric history, and was admitted on 03/12/19 22:52 on a 201 voluntary commitment for suicidal ideation with threats to shoot himself. Chief Complaint "Feeling pretty good. Just had lunch, so a little sleepy." Review of Systems Notes Constitutional: denied Cardiovascular: denied Respiratory: denied Gastrointestinal: denied Neurological: denied Psychiatric: denies symptoms other than stated above Total of at least 10 systems reviewed, pertinent positives as above and in HPI. Sleep Information Total Hours of Sleep: 5.25 Sleep Comments: awakened at 0400 to be given a scheduled dose of neurontin-AWSS score was 0-he was able to fall back to sleep by 0500 rounds. Meal Information Percent Meal Consumed - Breakfast: 100 Percent Meal Consumed - Lunch: 50 Percent Meal Consumed - Dinner: 100 Subjective Subjective Patient was seen & assessed and interval progress reviewed with treatment team. Staff reports the patient has been cooperative and attending groups. There remains some concern that patient may be minimizing his presenting symptoms, though he reports improvement in mood. Pt scored a 6 on the AWSS on two occasions last evening - has been scoring a 2 on two assessments thus far today. Pt was seen today to assess progress since admission. Pt states he is "doing good" and reports "mood is improving each day." Pt denies SI and continues to claim that his admission is related to an "isolated situation." Pt continues to claim that he does not recall texting his boss, and states suicidal ideation has not been a struggle for him previously. Pt does admit that he has been considering the impact his alcohol use has had in his decision making, and sh arsneio and agreement with his girlfriend that their apartment will remain "alcohol free." Pt does not feel that he requires D&A counseling for his use. He does admit to reflection on some recent "impulsive decisions", including the events leading to his admission and a decision to purchase a motorcycle. He states that this admission has allowed him to refocus his long and short term goals, and he feels this will help him make more appropriate decisions moving forward. He does share that he has purchased a gun safe, and "my girlfriend is picking it up". (unclear when this purchase was made). He was agreeable to a safety planning conversations regarding red flags which may prompt him to give the keys over to his girlfriend - as he does not feel there is a need to have the guns completely secured at this time, despite recommendations. Pt continues to be unwilling to involve supports in a family meeting to discuss discharge and safety planning. Physical Exam Psychiatric Orientation: alert, oriented x 3 and cooperative (and pleasant) Apperance: appropriately dressed (casually in flannel shirt and jeans), appropriately groomed and appeared stated age Eye Contact: good eye contact Motor Behavior: steady gait and station and no abnormal motor movements Speech: normal rate/rhythm/volume of speech Affect: + blunted affect (not appearing overtly depressed) and mood congruent with affect Mood: no depressed mood and no anxious mood "I feel fine, maybe embarrassed. This an isolated incident" Thought Process: goal directed thought process and clear/coherent thought process Thought Content: reality based without delusions; no hopelessness and no worthlessness Suicidal Thoughts: denies suicidal thoughts and denies suicidal intent Homicidal Thoughts: denies homicidal thoughts Hallucinations: no auditory hallucinations and no visual hallucinations Cognition: recent memory grossly intact, attention grossly intact and language grossly intact Estimated Intelligence: consistent with education level Insight: + fair insight Judgement: + fair judgement Vital Signs (Past 24 Hours) Last Vital Signs Temp 36.6 C 03/15/19 08:51 Pulse 99 H 03/15/19 08:51 Resp 14 03/15/19 08:51 BP 141/96 H 03/15/19 08:51 Pulse Ox 97 03/12/19 23:02 Results & Data Current Inpatient Medications Current Inpatient Medications: Current Inpatient Medications Acetaminophen (Tylenol) 650 mg PO Q4H PRN PRN Reason: Headache or Minor Fever Stop: 04/11/19 23:54 Al Hydrox/Mg Hydrox/Simethicone (Maalox) 30 ml PO Q4H PRN PRN Reason: GI Upset Stop: 04/11/19 23:54 Bismuth Subsalicylate (Kaopectate) 15 ml PO PRN PRN PRN Reason: Loose Stool Stop: 04/11/19 23:54 Gabapentin (Neurontin) 600 mg PO Q12H CONNOR Stop: 03/16/19 04:01 Gabapentin (Neurontin) 600 mg PO Q24H CONNOR Stop: 03/17/19 06:01 Hydroxyzine HCl (Vistaril) 50 mg PO HSZ PRN PRN Reason: Insomnia Stop: 04/11/19 23:54 Hydroxyzine HCl (Vistaril) 25 mg PO Q4H PRN PRN Reason: Anxiety Stop: 04/11/19 23:54 Lorazepam (Ativan) 1 - 3 mg PO UD PRN; Protocol PRN Reason: EtoH Withdrawal AWSS 6-10+ Stop: 04/11/19 22:50 Last Admin: 03/14/19 18:15 Dose: 1 mg Documented by: Magnesium Hydroxide (Milk Of Magnesia) 30 ml PO DAILY PRN PRN Reason: Constipation Stop: 04/11/19 23:54 Sodium Chloride ([place] Nasal) 1 - 2 sprays NA PRN PRN PRN Reason: Nasal Dryness/Congestion Stop: 04/11/19 23:54 Mental Health & Subst Abuse Tx Therapist Name of Therapist: None Director Of Dietary Name of Director Of Dietary: None Post Discharge Appointments Primary Care Physician Name Of Family Doctor: None CPT Code CPT Code 49056
[2019-03-16] MEDS: GABAPENTIN 600 MG TAB PO SCH (04:15)
--- NOTE | 2019-03-16 08:48 | Discharge Summary ---
Date of Service March 16, 2019 History of Present Illness Patient presented to the ER yesterday (03/12/19) with police on a 302 warrant after he missed work for several days, then sent his boss a text stating he might "blow his head off." His boss contacted police who found him sitting in his living room with 3 guns. He was intoxicated on presentation with a BAL of 173. He reported significant work stress, and said he did not recall making suicidal statements to his boss, but that he often has SI when drinking. He endorsed recent increase in alcohol intake as a way to deal with stress. He had been living in [place] until a year ago when he moved here to live with his mother, and had been working at [employer] but didn't like the job or get along with his boss. He reported drinking 2 nights a week, and was started in AWSS due to HTN and tremor in ER. Today on my assessment, he reports he doesn't like his boss, as his car and he hadn't been to work in a while, and his boss was not very understanding. His boss also made rude comments about his girlfriend, "he's very intense and it's difficult to be around him." He says he texted his boss yesterday morning telling him he wasn't coming in, and his boss "fired back with a bunch of stuff." He got upset and "started drinking, either vodka or whiskey," and they continued to communicate by text over the next couple of hours, but he doesn't recall the content of this conversation as he was intoxicated. He admits he might have sent suicidal statements, and says the next thing he remembers, the police were at his door. He admits that he had several guns out in the living room when police arrived, and states he typically leaves his guns out, one on the table, one leaning against the wall, and one on a shelf, and is not concerned about safety issues. He denies that he's had suicidal thoughts when sober, stating it's "irrational" and he doesn't think he would ever hurt himself, "I don't want to hurt myself." He denies depressive symptoms, describes mood as "really good" (other than yesterday, which was "a really bad day"), just started a new relationship that is "going really good," and denies problems with sleep, appetite, weight loss, concentration, and guilt. He denies anxiety, psychosis, and lobito. He states his job was "the only thing not going good in my life." He had been thinking about leaving his job, but "felt an obligation" to some of the people he worked with. He had actually set up an interview at [facility] her local business, which he missed yesterday. He has lots of hobbies and enjoys sewing, woodworking, working on motorcycles and cars, and volunteers at a racetrack in [place]. Describes relationship with mother as "distant, but we love each other." He reports embarrassment about the events that led to hospitalization, states he is willing to talk through his stressors, and thinks that it could help to be here. Physical Exam Psychiatric Orientation: alert, oriented x 3 and cooperative (superficially; but pleasant) Apperance: appropriately dressed (casually in a flannel shirt and jeans), appropriately groomed and appeared stated age Eye Contact: good eye contact Motor Behavior: steady gait and station and no abnormal motor movements Speech: normal rate/rhythm/volume of speech Affect: euthymic affect and mood congruent with affect; no depressed affect and no anxious affect Mood: no depressed mood and no anxious mood "I'm feeling really good" Thought Process: goal directed thought process and clear/coherent thought process Thought Content: reality based without delusions; no hopelessness and no worthlessness Suicidal Thoughts: denies suicidal thoughts and denies suicidal intent Homicidal Thoughts: denies homicidal thoughts Hallucinations: no auditory hallucinations and no visual hallucinations Cognition: remote memory grossly intact, attention grossly intact and language grossly intact Estimated Intelligence: consistent with education level Insight: good insight Judgement: good judgement Vital Signs (Past 24 Hours) Last Vital Signs Temp 36.7 C 03/16/19 06:42 Pulse 88 03/16/19 06:43 Resp 18 03/16/19 06:42 BP 134/97 03/16/19 06:43 Pulse Ox 97 03/12/19 23:02 Principal Diagnosis - Adjustment disorder with depressed mood - Alcohol withdrawal Psychiatric Data 28-year-old male admitted voluntarily for inpatient psychiatric treatment after being brought to the ED on a 302 warrant for sending suicidal text messages to his boss. Pt had reportedly been drinking, and sent messages to his boss reporting he would "blow his head off." When police arrived at the patient's apartment, he was reportedly found to be sitting in his living room with 3 guns. Pt was intoxicated on presentation to the ED, with a DANELLE of 173. Pt was initiated on AWSS protocol with gabapentin taper, as it was presumed that he may have been minimizing his alcohol use and also displayed a tremor with hypertension in the ED. During the patient's admission, he reported that the events leading to his hospitalization were situational. He denied suicidal ideation prior to admission and did not endorse any clear mood or anxiety symptoms. Although it is believed patient may have been minimizing some of his symptoms, he was treated for a diagnosis of adjustment disorder with depressed mood. Although patient was not started on any daily psychotropic medications, he requested prn medications for periods of acute anxiety related to situational stressors. A limited supply of hydroxyzine was provided on discharge. During his admission, the patient attended group and recreational programming and was supportive of peers. Despite involvement in programming on the unit, patient has consistently declined offers for aftercare to be arranged. Pt was educated on recommendations for therapy and/or D&A counseling on discharge, as well as recommendation that he follow-up with a PCP for concerns of hypertension and abnormal LFTs. Multiple offers were made to set up these appointments before d ischarge. Pt did complete an MA application, but remained resistant to having aftercare arranged prior to discharge. He was also unwilling to involve his parents or girlfriend in a family meeting during his admission. Pt states he is planning to work with his parents to explore "supervisor long goods options for treatment" after discharge - which includes PCP and therapy. Pt reported plan to acquire a gun safe to allow for the option to secure his firearms - due to unwillingness to involve outpatient supports, we were unable to confirm if this had been done. Pt did complete a safety plan prior to discharge, which was personally reviewed by this provider. Pt denied SI during his stay, and participated in future- oriented conversations. He is requesting discharge, which seems appropriate at this time. While patient would ideally have ongoing outpatient follow-up and treatment, risks were mitigated during his stay as he was agreeable. Discharge to a less restrictive setting seems appropriate at this time, as it is not perceived that patient is at acute risk of harm to himself or others. Discharge plan was discussed with the patient, who verbalized understanding and was agreeable with plan to be discharged home today. Day of Discharge Assessment Patient's case was reviewed and discussed with nursing and social work. Staff report that the patient is interested in therapy options, but prefers to set these services up with assistance from his parents after discharge. Pt has reportedly continued to engage in group programming, and is reportedly feeling ready for discharge today. Pt was seen today to assess readiness for discharge. Pt states he is "really good" today. He shares with this provider parts of a conversation last evening with a counselor - in which he states, "we talked about some things that may be playing a bigger role than I originally thought." When asked for examples of this, the patient states that "anxiety" may have been something he had previously minimized. Pt states that he also recognized a tendency to repress his emotions and "keep things bottled up." Pt states his conversation was helpful in identifying these traits, and he hopes to work on these things further after discharge. This provider again recommended therapy as a way to further improve on these characteristics. Pt states he is planning to discuss his aftercare with his parents before deciding on treatment. Pt states, "I called my parents last night and they want to help. They said they would help me get things set up and make sure I have supervisor long goods care." This provider reiterated that we are able to set up services prior to discharge to increase the efficiency of this process, but patient again declines the offer. Pt states he feels his mood continues to improve, and he denies any safety concerns at this time. Pt denies SI and is future oriented in conversation. He completed a safety plan prior to discharge, and is able to verbalize this plan with this provider. He reports understanding of emergency contacts in the area and reports willingness to utilize these supports if needed in the future. Pt is requesting discharge today, planning to be picked up by his girlfriend. At this time, his risk of harm to self has been reduced, and risk factors have been mitigated as able, according to patient's willingness. It seems most appropriate that his treatment continue on an outpatient basis, as this is the least restrictive setting for treatment at this time. Recommendation remains that patient establish a relationship with a therapist or D&A counselor after discharge to continue to address his mental health symptoms and alcohol abuse. He was also informed of recommendation to establish care with a PCP to address hypertension and abnormal LFTs. Pt declines referrals and reports he will work with his parents to coordinate this care. Pt verbalized understanding of discharge process and is agreeable with plan for discharge home today. ROS: Constitutional: reports mild fatigue Cardiovascular: denied Respiratory: denied Gastrointestinal: denied Neurological: denied Psychiatric: denies symptoms other than stated above Total of at least 10 systems reviewed, pertinent positives as above and in HPI. Transition of Care Transition Of Care Record: was reviewed with the patient Advance Directives Advance Directives Information Provided: Yes Advance Directives: No Mental Health Advance Directive: No Advance Directives on File: No Living Will: No Power of Student Services Counselor: No Advance Directives Reason:: Declines as Mental Health Visit. Risk Factors Assessment Presenting risk factors reviewed on discharge. Precipitating stressors mitigated by: admission for inpatient psychiatric observation and treatment, attendance of therapeutic treatment groups, development of healthy and effective coping strategies, completion of a safety plan, discussion regarding substance abuse and effects on mental health diagnoses, and education on diagnoses. Pt has demonstrated improvement in condition with regard to improvement in mood and resolution of suicidal ideation. At this time, patient is requesting discharge and is no longer considered to be at acute risk of harm to himself or others. Pt will be discharged with recommendation for ongoing outpatient psychiatric treatment. While it is perceived that patient's risk of harm to self or others has been reduced; his chance of decompensation may remain higher than desired due to refusal to engage in recommended aftercare following discharge. Recommendations offered included referral for therapy/D&A counseling, referral to a PCP to address hypertension, and abnormal lab results, offer to involve supports in a family meeting to discuss safety planning, and recommendation that firearms be s ecured in a locked safe without direct patient access. Pt was resistant to the recommendations, which were offered and discussed again on day of discharge. Pt did verbalize understanding of emergency contacts and willingness to utilize these and other supports should concerns recur. Male: Yes : Yes Do You Have Access To A Gun?: Yes (multiple guns - 2 pistols and several rifles) Health Problems: No Mental Health Diagnoses: No Substance Use Disorders: No Previous Attempt: No Family History of Suicide: No Previous Psychiatric Hospitalization: No Hopelessness: No Smoker: No Protective Factors Assessment Pentecostalism Beliefs: No : No Responsible for Young Children: No Employed: No (Quit job today at [employer]) Stable Relationships: Yes Supportive Family: Yes Good Rapport with Provider: No Tobacco Cessation at Discharge Tobacco Cessation Medication Prescribed at Discharge: Not Applicable/Non-Smoker Total Time Total Time Spent: Greater Than 30 Minutes Total Time Includes: Examination of the patient, Discharge Planning, Medication Reconciliation and Communication with other providers Discharge Data Lab Results 03/12/19 03/12/19 03/12/19 12:20 12:20 12:30 WBC RBC Hgb Hct MCV MCH MCHC RDW Std Deviation RDW Coeff of Ney Plt Count MPV Immature Gran % (Auto) Neut % (Auto) Lymph % (Auto) [place] % (Auto) Eos % (Auto) Baso % (Auto) Immature Gran # (Auto) Neut # (Auto) Lymph # (Auto) [place] # (Auto) Eos # (Auto) Baso # (Auto) Sodium 140 Potassium 3.1 L Chloride 103 Carbon Dioxide 28 Anion Gap 9.0 BUN 4 L Creatinine 0.89 Est Cr Clr Drug Dosing 142.4 Est GFR ( Amer) 133.9 Est GFR (Non-Af Amer) 115.5 BUN/Creatinine Ratio 4.4 L Glucose 90 Calcium 8.7 Total Bilirubin 0.8 AST 74 H ALT 83 H Alkaline Phosphatase 70 Total Protein 8.5 H Albumin 4.6 Globulin 3.9 Albumin/Globulin Ratio 1.2 TSH 0.954 Urine Color Dark Yellow Urine Appearance Cloudy A Urine pH 6.0 Ur Specific [place] 1.019 Urine Protein 1+ H Urine Glucose (UA) Negative Urine Ketones Trace H Urine Blood Negative Urine Nitrite Negative Urine Bilirubin Negative Urine Urobilinogen Negative Ur Leukocyte Esterase Trace H Urine WBC (Auto) 1-5 Urine RBC (Auto) 0-4 U Hyaline Cast (Auto) 10-30 H U Epithel Cells (Auto) >30 H Urine Bacteria (Auto) Negative Salicylates Urine Opiates Screen Neg Ur Methadone, Qual Neg Acetaminophen Urine Barbiturates Neg Ur Phencyclidine (PCP) Neg U Amphetamin/Meth Scrn Neg MDMA (Ecstasy) Screen Neg U Benzodiazepines Scrn Neg Ur Cocaine Metabolite Neg U Marijuana (THC) Screen Neg Ethyl Alcohol mg/dL 09/03/12/19 03/12/19 12:31 12:31 12:31 WBC 4.59 L RBC 5.42 Hgb 18.3 H Hct 49.9 MCV 92.1 MCH 33.8 MCHC 36.7 H RDW Std Deviation 41.1 RDW Coeff of Ney 12.2 Plt Count 251 MPV 9.5 Immature Gran % (Auto) 0.2 Neut % (Auto) 57.2 Lymph % (Auto) 34.4 [place] % (Auto) 7.8 Eos % (Auto) 0.2 Baso % (Auto) 0.2 Immature Gran # (Auto) 0.01 Neut # (Auto) 2.62 Lymph # (Auto) 1.58 [place] # (Auto) 0.36 Eos # (Auto) 0.01 Baso # (Auto) 0.01 Sodium Potassium Chloride Carbon Dioxide Anion Gap BUN Creatinine Est Cr Clr Drug Dosing Est GFR ( Amer) Est GFR (Non-Af Amer) BUN/Creatinine Ratio Glucose Calcium Total Bilirubin AST ALT Alkaline Phosphatase Total Protein Albumin Globulin Albumin/Globulin Ratio TSH Urine Color Urine Appearance Urine pH Ur Specific [place] Urine Protein Urine Glucose (UA) Urine Ketones Urine Blood Urine Nitrite Urine Bilirubin Urine Urobilinogen Ur Leukocyte Esterase Urine WBC (Auto) Urine RBC (Auto) U Hyaline Cast (Auto) U Epithel Cells (Auto) Urine Bacteria (Auto) Salicylates < 1.7 L Urine Opiates Screen Ur Methadone, Qual Acetaminophen < 2 L Urine Barbiturates Ur Phencyclidine (PCP) U Amphetamin/Meth Scrn MDMA (Ecstasy) Screen U Benzodiazepines Scrn Ur Cocaine Metabolite U Marijuana (THC) Screen Ethyl Alcohol mg/dL 173.0 H Hospital Course (1) Adjustment disorder with depressed mood: 03/13 -get collateral information from mother or girlfriend as to recent mood symptoms, suicidal statements, and other concerns. Scheduled family meeting if appropriate. -Every 15 minute checks for safety. Encourage the patient to attend and partic ipate in groups and therapy, work on healthy coping skills and a discharge safety plan. -Patient owns multiple guns, which he uses recreationally, and denies any safety concerns about having them in the home. Provide education regarding safe storage of guns and recommendations that a plan be in place for someone to remove and secure his guns if and when there are safety concerns. He does not feel this is necessary currently. -Education provided regarding risks of ongoing alcohol use, including worsening mood and anxiety, health issues, disinhibition/increased impulsivity, and increased risk of acting on suicidal thoughts. Patient states that yesterday's binge drinking was out of character, and that he typically drinks 1-2 drinks 1-3 nights a week. 03/14 -mood continues to improve. Reports good support from girlfriend, but declining a formal family meeting. -Patient continues to decline recommendations to secure firearms. -Although he is interested in outpatient therapy, he is declining a referral due to lack of insurance and financial barriers. Encouraged him to apply for medical assistance, and will provide a list of resources in the community in case he changes his mind. 03/15 - Pt reports ongoing improvement in mood, denies SI - concern for ongoing minimization of presenting symptoms - Given limited willingness to participate in recommended outpatient treatment, patient would benefit from ongoing therapeutic intervention and assistance in development of healthy and effective coping strategies - Referral is also in progress for [facility] to establish medical care, and medical assistance application has been encouraged to assist with any future treatment needs (2) Alcohol withdrawal: 03/13 -patient with hypertension, tachycardia, tremor, and reflux. Continue AWSS protocol with as needed lorazepam. He has received 3 mg in 12 hours since admission. 03/14 -gabapentin taper started yesterday due to severity of withdrawal symptoms, tachycardia, and hypertension. Vital signs have stabilized, and he has not triggered AWSS in most 24 hours. -Reviewed patient's lab work with him, including his elevated LFTs, and that this is likely due to his alcohol intake. Reviewed the risks of ongoing alcohol use, including organ damage, effects on mood, risk of suicide, other dangerous behaviors, legal problems, etc. Reviewed recommendations for substance abuse treatment and abstinence. Brief intervention was offered and accepted Intervention was greater than 5 min in length. Brief interventions include: 1. Assess Readiness to Quit, 2. Advise: Help Patient to Reduce or Abstain from Alcohol, 3. Agree: Set Specific, Feasible Goals, 4. Assist: Anticipate barriers, Problem-Solving Solutions. Social work to 5. Arrange: Referrals to appropriate treatment. Summary of intervention: The patient is in contemplation stage with regards to transtheoretical model of change. The patient is advised to decrease alcohol consumption due to depressant effects and risk of interactions with prescription medications. The patient agreed to abstain from alcohol, and will be provided with recovery materials to continue to education self on how to cope with their condition without drinking. 03/15 - Pt scored a 6 on two AWSS assessments last evening - this morning scoring a 2. Will continue AWSS protocol and ongoing gabapentin taper as above - Pt continues to decline recommended D&A outpatient treatment - Pt reports conversations with girlfriend in which they determined plan to keep the apartment "alcohol free" Mental Health & Subst Abuse Tx Therapist Name of Therapist: None Athletic Agent Name of Athletic Agent: None Post Discharge Appointments Primary Care Physician Name Of Family Doctor: None Smoking Cessation Counseling Tobacco Cessation Medication Prescribed at Discharge: Not Applicable/Non-Smoker Discharge Plan Discharge Items Patient Disposition: Home - Self-Care Reason For Visit: DEPRESSION NOS Discharge Diagnosis: Adjustment disorder Condition on Discharge: Good Activity: Resume your previous activity Non-emergency contact: Primary Care Provider Call non-emergency contact if: you have any medication questions and your symptoms worsen Follow-up/Referrals: PCP,NO [Primary Care Provider] - Diet: Regular Addtl Attending Provider Instructions: SPECIAL CARE INSTRUCTIONS: 1. Offers were made during your admission to set up outpatient therapy. This remains a recommendation, and we suggest you consider if therapy may be beneficial for you on an outpatient basis. A referral has been made to [facility] for primary medical follow-up. Please keep this scheduled appointment, or call to reschedule if necessary. It is recommended that you follow-up for evidence of high blood pressure and lab abnormalities. 2. Take your medication only as prescribed. Medication should not be changed or stopped without the approval of your doctor. In the event of worsening symptoms or concerns about side effects, contact your doctor immediately. 3. Utilize new healthy coping skills, anger management skills, and stress management skills learned during your hospitalization. Journal feelings and process them with a support person. Identify stressors or situations that may result in relapse, deterioration or inappropriate behaviors and develop a plan to deal with those issues. 4. If your coping skills are ineffective and you are in crisis, contact your outpatient providers for direction. If unable to reach your providers, please call the CAN HELP LINE AT or go to the closest Emergency Room. 5. Avoid alcohol and un-prescribed drugs. 6. You have been provided with the Mental Health Advance Directives Pamphlet for your review. AFTERCARE APPOINTMENTS: * Please call your insurance company prior to your scheduled appointment to confirm your aftercare providers are covered. Take your insurance information to your appointments. WHO TO CALL AND WHEN: Medical Emergencies: For questions or emergencies related to your hospital stay, please contact the Inpatient Behavioral Health Unit at [phone]. A access clinician is on-call 20/01 for the Behavioral Health Unit for emergencies At any time you feel your situation is an emergency, you may also call 911 immediately. Your Doctors Instructions noted above were prepared by provider Marie Do PA-C. Pending Studies at Discharge: No Stand-Alone Forms: My [facility] Medications and DC Order Prescriptions: New gabapentin 600 mg Tablet 600 mg PO Q24H 1 Days Qty: 1 RF: 0 hydroxyzine HCl 25 mg Tablet 25 mg PO Q4H PRN (Reason: anxiety) 10 Days Qty: 10 RF: 0 No Action No Known Home Medications RF: 0 Discharge Orders: Discharge Order (Routine); Ordered 03/16/19 Ordered By: Marie Ceja/Other Patient Handouts: Alcoholism Myths Facts, Alcoholism Impact, Addiction Social Use Signs, Withdrawal Alcohol What Expect, Addiction Recovery Counseling Admission Data Admit Date/Time: 03/12/19 22:52 Attending Provider: Katelin Baron Admit Provider: Katelin Baron Primary Care Provider: PCP,NO Other Interventions: Discharge Summary Assessment (RN) Last Done: 03/16/19 09:40 PSY Interdisciplinary Discharge Planning Last Done: 03/16/19 10:08 DC Date/Time DO NOT enter until pt leaves facility: 03/16/19 11:34
[2019-03-17] MEDS ORDERED: GABAPENTIN 600 MG TAB PO SCH (06:00)
== END 2019-03-16 11:34 | disposition home or self-care (01) | DRG 881 ==
LOC: ED 10:57 → 3S 22:52